=== PATIENT | male | born 1965 | race American Indian/Alaskan Native ===

== ENCOUNTER 2018-06-23 12:19 | Day surgery (SDC) | payer OTHER ==
[2018-06-23] MEDS ORDERED: Eptifibatide 20 mg/10mL Inj IVP ONE (13:11)
[2018-06-23] MEDS ORDERED: Eptifibatide 0.75 mg/ml 75 MG/100 ML BOTTLE IV ONE ×2 (13:11→19:20)
[2018-06-23] MEDS ORDERED: Sodium Bicarbonate (8.4%) 50 Meq Syringe IVP ONE (13:20)
[2018-06-23] MEDS ORDERED: Iodixanol 320 MG/ML 200 ML BOTTLE IV ONE (13:51)
[2018-06-23] MEDS ORDERED: Iodixanol 320 MG/ML 100 ML BOTTLE IV ONE (13:51)
[2018-06-23] MEDS ORDERED: Iohexol 350mgl/ml 50 ML ONE (13:51)
[2018-06-23] MEDS ORDERED: Lidocaine 2% PF (10 ml) Amp ONE (13:51)
[2018-06-23] MEDS ORDERED: Midazolam 2 MG/2 ML VIAL ONE ×2 (13:52→14:09)
[2018-06-23 14:56] VITALS: BMI 26.3
--- NOTE | 2018-06-23 15:57 | CARDCATH ---
PROCEDURE DATE: 06/23/2018 CARDIAC CATH AND ANGIOPLASTY HISTORY: The patient is a 52-year-old male with multiple cardiac risk factors, who presented to [facility] with a non-STEMI. He was found on cardiac catheterization to have critical lesion in the circumflex artery and LAD. There was an intracoronary thrombus in the circumflex artery. The patient was transferred here for emergency PTCA and stent. PROCEDURE: PTCA and stent of the circumflex artery, PTCA and stent of the LAD. The right femoral artery was used for the procedure. The 6-Romansh sheath was exchanged sterilely for a new 6-Romansh sheath. I performed moderate sedation, which included the presence of an independent trained observer that monitored the patient's consciousness and physiologic status. After intravenous Versed and fentanyl, my intra service time was 45 minutes. The findings on angiogram revealed a 90% lesion in the mid circumflex artery involving a superior branch. There was intracoronary thrombus noted. In addition, in the mid LAD, there was an 80% stenosis noted. The patient was given additional 4000 units of IV heparin. The guiding catheter was placed in the ostium of left main artery. An 0.014 ATW wire was brought into the superior branch of the circumflex artery and dilated with a 2 balloon up to 10 atmospheres of pressure. After balloon inflammation and removal, the lesion results were excellent. A second wire was then placed in the large inferior segment of the circumflex artery. A 2 balloon was utilized to dilate that area. An intraluminal defect was noted. A 2.75 x 18 mm drug-eluting stent was used to stent the circumflex artery lesion at 15 atmospheres of pressure. Repeat coronary arteriography revealed an excellent result with resolution of the defects and thrombus. There was no residual stenosis noted. There was minimal sluggish flow down the circumflex artery consistent with residual thrombus. The wire was then brought back and placed into the LAD. A 2.5 x 12 mm drug-eluting stent was placed and deployed at 14 atmospheres of pressure. Repeat coronary arteriography revealed an excellent result with no residual stenosis and JOSETTE 3 flow. A total of 40 mL of contrast dye was utilized. Angio-Seal was used to close the femoral artery site. In summary, the procedure was successful PTCA and stent of a critically stenosed mid circumflex lesion, which contained intracoronary thrombus. Drug-eluting stents were utilized. The superior branch of the circumflex artery was manipulated with balloon angioplasty. A drug-eluting stent was also placed in the LAD lesion. Given these findings, the patient will remain on Integrilin for 12-18 hours. The patient will be transferred back to [facility] in 3 hours for continued care under the care of Dr. Scott. Felix Bernstein MD
[2018-06-23 17:06] VITALS: BP 149/99; PULSE 66; RESP 18; O2SAT 100
--- NOTE | 2018-06-23 17:28 | CP.PCM.CON ---
History of Present Illness - History of Present Illness History of Present Illness: Teofilo Sanchez, , PGY-1 ICU Consult Note for Dr. Herman Patient is a 52 yo M with PMH of HTN and CKD who presented to [facility] on 06/22 with mid-sternal chest pain. He states that the chest pain was a burning type pain that did not radiate and he had diaphoresis and chills on his way to the hospital. He was found to have a NSTEMI so ICU at [facility] was consulted. He was given ASA, plavix, and placed on heparin drip. He was evaluated by renal for clearance for PCI. He was subsequently transferred to [facility] today for PCI. A MELISSA was placed in LAD. Currently, patient states he feels well and denies chills, diaphoresis, ALEXANDER, blurred vision, CP, SOB, cough, noisy breathing, abdominal pain/nausea/vomiting, or peripheral numbness/tingling. Review of Systems - Constitutional Constitutional: absent: Chills - EENT Eyes: absent: Blurred Vision Nose/Mouth/Throat: absent: Throat Swelling, Tongue Swelling - Cardiovascular Cardiovascular: absent: Chest Pain, Dyspnea - Respiratory Respiratory: absent: Cough, Wheezing - Gastrointestinal Gastrointestinal: absent: Abdominal Pain, Nausea, Vomiting - Neurological Neurological: absent: Numbness, Tingling Meds Allergies/Adverse Reactions: Allergies Allergy/AdvReac Type Severity Reaction Status Date / Time No Known Allergies Allergy Verified 06/23/18 16:22 Physical Exam - Constitutional Appears: Non-toxic, No Acute Distress - Head Exam Head Exam: ATRAUMATIC, NORMAL INSPECTION - Eye Exam Eye Exam: EOMI, Normal appearance, PERRL - ENT Exam ENT Exam: Mucous Membranes Moist - Neck Exam Neck exam: Positive for: Full Rom, Normal Inspection - Respiratory Exam Respiratory Exam: Clear to Auscultation Bilateral. absent: Accessory Muscle Use, Rales, Rhonchi, Wheezes - Cardiovascular Exam Cardiovascular Exam: REGULAR RHYTHM, RRR, +S1, +S2. absent: Diastolic murmur, Gallop, JVD, Rubs, Systolic Murmur - GI/Abdominal Exam GI & Abdominal Exam: Soft. absent: Guarding, Rebound, Tenderness - Extremities Exam Extremities exam: Positive for: normal inspection, pedal pulses present (Radial, DP, and PT pulses 2+ bilaterally). Negative for: calf tenderness, pedal edema - Neurological Exam Neurological exam: Alert, Oriented x3 - Psychiatric Exam Psychiatric exam: Normal Affect, Normal Mood - Skin Skin Exam: Dry, Intact, Normal Color, Warm Results - Vital Signs Recent Vital Signs: Last Vital Signs Temp Pulse 66 06/23/18 17:00 Resp 18 06/23/18 17:00 BP 149/99 H 06/23/18 17:00 Pulse Ox 100 06/23/18 17:00 Assessment & Plan - Assessment and Plan (Free Text) Assessment: 52 yo M with PMH of NSTEMI, HTN, and CKD presents to [facility] for PCI with Dr. Bernstein from [facility]. Plan: Patient currently HD stable, able to protect airway. He is currently asymptomatic. Peripheral pulses are intact. Stable for transfer back to [facility]. Case and plan reviewed and discussed with my attending Dr. Batsheva Sanchez, DO IM Resident PGY-1
== END 2018-06-23 19:30 | disposition short-term general hospital (02) ==
LOC: CATH 12:19 → MERGE 12:19 → ICU 15:47 → CATH 19:30
PROVIDERS: ATTEND Internal Medicine Cardiovascular Disease
DX: I21.4 Non-ST elevation (NSTEMI) myocardial infarction (principal); I25.10 Atherosclerotic heart disease of native coronary artery without angina pectoris; I12.9 Hypertensive chronic kidney disease with stage 1 through stage 4 chronic kidney disease, or unspecified chronic kidney disease; N18.9 Chronic kidney disease, unspecified; Z79.02 Long term (current) use of antithrombotics/antiplatelets
CPT/HCPCS: 99152; 99153; C1725 ×2; C1760; C1769; C1874 ×2; C1887; C2629; C9600; C9601; J1327 ×2; J1644 ×2; J2250; J3010; Q9966; Q9967